=== PATIENT | female | born 1990 ===

== ENCOUNTER 2020-06-04 06:42 | Emergency (ER) | payer OTHER, SELFPAY ==
[2020-06-04 07:15] VITALS: BP 114/65; PULSE 107; RESP 18; TEMP 36.6; O2SAT 100; BMI 20.3
--- NOTE | 2020-06-04 07:29 | ED.GENADULT ---
HPI - General Adult General Chief complaint: Back Pain/Injury Stated complaint: back pain Time Seen by Provider: 06/04/20 07:15 Source: patient Mode of arrival: ambulatory Limitations: no limitations History of Present Illness HPI narrative: 30-year-old female who presents emergency department for evaluation of left-sided back pain with pain radiating down her left leg. She states the pain began yesterday evening at 11:30 p.m.. The pain came on gradually but got progressively worse. She points to her left lower back when asked to localize the pain. The pain is sharp, constant pain which is 10/10 at its worst. She did not take any pain medications at home for this pain. The pain does radiate down her leg to the back of her foot. She states that she does feel weakness in her left leg but has no numbness. She denied loss of bowel or bladder control. She does not recount any injury over the last 1-2 days. She was carrying some boxes yesterday but did not think that she hurt herself. She denied any generalized symptoms such as fever, chills, chest pain, shortness of breath, cough, nausea, vomiting, diarrhea, loss of sense of taste or smell. The patient states the pain is similar to sciatic pain that she had approximately 1 year ago when she was . Related Data Previous Rx's Medication Instructions Recorded cyclobenzaprine 10 mg PO BEDTIME PRN #10 tab 06/04/20 morphine 15 mg PO Q4-6H PRN #10 tab 06/04/20 Allergies Allergy/AdvReac Type Severity Reaction Status Date / Time acetaminophen [Percocet] Allergy Unknown rash Verified 12/23/18 00:00 oxycodone [Percocet] Allergy Unknown rash Verified 12/23/18 00:00 Review of Systems Review of Systems: Yes all other systems are reviewed and are negative [facility] Past Medical History [facility] Narrative: Past medical history sent for sciatica, past surgical history the patient had maxillofacial surgery for an overbite. She denies tobacco, alcohol and drug use. Medical History No known health problems Social History Social History Smoking Status: Never smoker Use of substances other than those prescribed or required for medical reasons: No Advance Directives: Yes Advance Directives Information Provided: No Advance Directives on File: No Physical Exam Vital Signs: Vital Signs: Last Vital Signs Temp 97.9 F 06/04/20 07:15 Pulse 75 06/04/20 09:56 Resp 18 06/04/20 07:15 BP 99/52 L 06/04/20 09:56 Pulse Ox 100 06/04/20 09:56 Body Mass Index 20.3 Const: General: cooperative, healthy appearing and in distress (Moderate secondary to back pain, having difficulty sitting on the stretcher) Orientation/consciousness: oriented to person and oriented to place Limitations: no limitations HENMT: Head: Yes normal to inspection, Yes normocephalic and Yes atraumatic Ears: external ears normal General nose exam: Normal external nose present Face and sinus: Yes normal facial exam Mouth: Normal oral and palatal mucosa present Throat: Yes posterior oropharynx normal Eyes: Periorbital: periorbital findings normal Eyelids: Yes eyelids normal Conjunctivae: conjunctivae normal Sclerae: sclerae normal Corneas: corneas normal Pupils: Equal, round and reactive pupils present Direct Ophthalmoscopy: normal light reflex Neck: Neck: Yes full ROM, Yes no lymphadenopathy, Yes no meningeal signs, Yes trachea midline and Yes supple Chest: Chest palpation & inspection: normal inspection of the chest and normal palpation of entire chest wall Resp: Effort & Inspection: normal respiratory effort and able to speak in complete sentences Auscultation: clear to auscultation bilaterally Cardio: Rate: regular rate Rhythm: regular rhythm Heart sounds: S1 normal heart sound present, S2 normal heart sound present and no murmurs GI: Inspection: Yes normal to inspection Palpation (GI): Soft to palpation, nontender, no guarding, not rigid and No hepatosplenomegaly present : General: Yes no CVA tenderness Back/Spine/Pelvis: Back: no CVA tenderness Cervical Spine: normal cervical lordosis Thoracic/Lumbar Spine: thoracic and lumbar spine normal to inspection, paraspinal muscle tenderness on the left in the mid lumbar and in the lower lumbar, lumbar spinal tenderness at L1, at L2, at L3, at L4 and at L5 and straight leg raise positive left Skin: Lesions: no lesions Rashes: no rashes Wounds: no wounds Neuro: General: oriented to person, oriented to place and no meningeal signs Cranial nerves: Yes CN's II-XII intact bilaterally and Yes Equal, round and reactive pupils present Cognition (Neuro): normal cognition Motor exam (neuro): 5/5 motor strength present throughout Extrem: General: Yes normal to inspection and Yes full ROM Psych: Appearance: well kempt Mental Status: mental status grossly normal Speech and movement: Normal speech and movement present Affect: normal affect Attitude: cooperative Thought process: Normal thought process present Thought content: Normal thought content present Course Course Course Narrative: 30-year-old female with history of sciatica who presents emergency department for evaluation of left lower back pain radiating down her left leg which began last night at 11:30 p.m., she had no injury and no systemic symptoms. Physical examination did reveal lumbar paraspinal muscle tenderness, lumbar vertebral tenderness and a positive left straight leg raise. Neurologic exam was nonfocal . The's examination is most consistent with sciatica. She was ordered to get Toradol 30 mg IV to see if this helps with the pain. 1009: The patient had some relief with the IV Toradol however she required a dose of morphine 4 mg IV. After the dose of morphine, she states that her pain is down to a tolerable level and she would like to try to go home. The patient's urinalysis and urine test were negative. The patient was advised to take ibuprofen and Tylenol for pain for pain not relieved by these medication she was given a prescription for morphine 15 mg, 1 pill every 4-6 hours as needed for pain. I did discuss addiction with the patient she states she has noted concerns. Patient was also started on Flexeril 10 mg at night. She was given verbal and printed instructions and discharged home. The patient was given a note not return to work for 2 days. [employer] search revealed no prescriptions for narcotic medications and a 1 year search interval. Medical Decision Making Lab Data Labs: Lab Results 06/04/20 06/04/20 Range/Units 08:20 08:20 Urine Color YELLOW Urine Appearance HAZY Urine pH 6.0 (5.0-8.0) Ur Specific [place] 1.025 (1.005-1.025) Urine Protein NEG (NEG-TRACE) MG/DL Urine Glucose (UA) NEG (NEG) MG/DL Urine Ketones NEG (NEG) MG/DL Urine Blood NEG (NEG) Urine Nitrite NEG (NEG) Ur Leukocyte Esterase NEG (NEG) Urine Test NEGATIVE (NEGATIVE) Discharge Plan Discharge Clinical Impression: Sciatica Patient Disposition: Home, Self-Care Instructions: Lumbar Radiculopathy (ED) Additional Instructions: Back Pain Discharge Instructions: Take Motrin(ibuprofen) 200 mg pills, 3 pills every 6 hours as needed for pain. Take Tylenol(acetaminophen) 500 mg pills, 2 pills every 6 hours as needed for pain. Take Flexerl(cyclobenzaprine) 10 mg pills, 1 pill every at night for pain or muscle spasm. This is a prescription medication. This medication will make you sleepy, therefore do not drive or work while taking this medication. Apply ice for 15 minutes to the area that hurts on your back, then apply a heating a pad on low for 15 minutes. Do this 4-6 times a day to help reduce the pain in your back. Continue with normal activities as tolerated since staying in bed and not moving around will make your pain worse. Please return to the Emergency Department or see your doctor immediately if your symptoms get worse or if you develop any new symptoms that are concerning you. Follow up with your doctor in 2 day. Please read the other printed discharge instructions on back pain with radiculopathy. Prescriptions: New cyclobenzaprine 10 mg tablet 10 mg PO BEDTIME PRN (Reason: muscle pain or spasm) Qty: 10 RF: 0 morphine 15 mg tablet 15 mg PO Q4-6H PRN (Reason: pain) Qty: 10 RF: 0 Stand Alone Forms: Work/School Release
[2020-06-04] MEDS: Ketorolac Tromethamine 30 MG/ML VIAL IVPUSH (07:33)
--- NOTE | 2020-06-04 08:17 | PC.NURSE ---
pt reports slight improvement in her pain 10/05, but also reports some tingling/pins and needle feeling which is new
[2020-06-04 08:34] LABS: Glucose Urine UA NEG (NEG); Leukocyte Esterase Urine NEG (NEG); Nitrite Urine NEG (NEG); Specific Gravity - Urine 1.025 (1.005-1.025); Urine Blood NEG (NEG); Urine Ketones NEG (NEG); Urine Protein NEG (NEG-TRACE)
[2020-06-04 08:36] LABS: Appearance Urine HAZY; Color Urine YELLOW
[2020-06-04] MEDS: Morphine Sulfate 4 MG/ML CARTRIDGE IVPUSH (09:06)
[2020-06-04 09:19] LABS: UPreg QC Valid YES; Urine Pregnancy NEGATIVE (NEGATIVE)
[2020-06-04 09:56] VITALS: BP 99/52; PULSE 75; O2SAT 100
--- NOTE | 2020-06-04 09:59 | PC.NURSE ---
pt reports feeling better pain at 4/10
== END 2020-06-04 10:42 | disposition home or self-care (01) ==
PROVIDERS: Emergency Provider Emergency Medicine Emergency Medical Services
DX: M54.42 Lumbago with sciatica, left side (principal); Z79.899 Other long term (current) drug therapy
CPT/HCPCS: 81003; 81025; 96374; 96375; 99284; J1885; J2270

== ENCOUNTER 2020-06-24 14:24 | Outpatient (REF) | payer OTHER, SELFPAY ==
[2020-06-25 08:40] LABS: BV Int Neg Control Negative (Negative); BV Int Pos Control Positive (Positive)
[2020-06-25 08:53] LABS: CT PCR NOT DETECTED (Not Detect.); NG PCR NOT DETECTED (Not Detect.)
[2020-06-26 08:36] LABS: Syphilis Screen Nonreactive (Nonreactive)
[2020-06-26 08:56] LABS: HBc Num1 0.09 S/CO (0.00-0.79); Hepatitis B Core Antibody Nonreactive (Nonreactive); ~HepC Num1 0.26 S/CO (0.00-0.79); ~Hepatitis C Antibody Nonreactive (Nonreactive)
[2020-06-26 09:21] LABS: HIV AB/AG Nonreactive (Nonreactive); HIV Num 1 0.06 S/CO (0.00-0.99)
[2020-06-27 09:01] LABS: HPV 16 RNA NOT DETECTED (NOT DETECTED); HPV mRNA E6/E7 rflx Detected (Not Detected)
== END 2020-06-24 14:25 | disposition home or self-care (01) ==
LOC: HO.LAB 14:24
PROVIDERS: Visit Provider Advanced Practice Midwife
DX: Z01.411 Encounter for gynecological examination (general) (routine) with abnormal findings (principal); Z11.51 Encounter for screening for human papillomavirus (HPV); N93.0 Postcoital and contact bleeding; Z20.2 Contact with and (suspected) exposure to infections with a predominantly sexual mode of transmission
CPT/HCPCS: 36415; 86704; 86780; 86803; 87389; 87480; 87491; 87510; 87591; 87624; 87625; 87660; 88141; 88142

== ENCOUNTER 2020-06-27 11:23 | Outpatient (REF) | payer OTHER, SELFPAY ==
--- NOTE | ~2020-06-27 | US_ITS ---
EXAMINATION: ULTRASOUND OF THE PELVIS CLINICAL INFORMATION: Pelvic and perineal pain. COMPARISON: 03/11/2018. TECHNIQUE: Transabdominal and transvaginal pelvic ultrasound. A transvaginal study was performed in addition to the transabdominal study which did not yield an adequate examination of the uterus and ovaries due to superimposed distended gas-filled loops of bowel. FINDINGS: The uterus is normal in size and appearance, measuring 6 x 2.9 x 4.2 cm longitudinally, anteroposteriorly and transversely. Retroverted uterus. The endometrial stripe thickness is normal, measuring 18.5 cm in thickness. No focal myometrial mass is seen. The ovaries bilaterally are visualized and appear normal, with the right ovary measuring 2.3 x 2.5 x 2.5 cm and the left ovary measuring 2.8 x 2.6 x 3 cm. Dominant follicle noted in the right ovary. No adnexal mass or free fluid collection seen. US/US pelvic complete IMPRESSION: Unremarkable pelvic ultrasound.
--- NOTE | ~2020-06-27 | US_ITS ---
EXAMINATION: ULTRASOUND OF THE PELVIS CLINICAL INFORMATION: Pelvic and perineal pain. COMPARISON: 03/11/2018. TECHNIQUE: Transabdominal and transvaginal pelvic ultrasound. A transvaginal study was performed in addition to the transabdominal study which did not yield an adequate examination of the uterus and ovaries due to superimposed distended gas-filled loops of bowel. FINDINGS: The uterus is normal in size and appearance, measuring 6 x 2.9 x 4.2 cm longitudinally, anteroposteriorly and transversely. Retroverted uterus. The endometrial stripe thickness is normal, measuring 18.5 cm in thickness. No focal myometrial mass is seen. The ovaries bilaterally are visualized and appear normal, with the right ovary measuring 2.3 x 2.5 x 2.5 cm and the left ovary measuring 2.8 x 2.6 x 3 cm. Dominant follicle noted in the right ovary. No adnexal mass or free fluid collection seen. US/US transvaginal IMPRESSION: Unremarkable pelvic ultrasound.
== END 2020-06-27 11:24 | disposition home or self-care (01) ==
LOC: HO.US 11:23
PROVIDERS: Visit Provider Advanced Practice Midwife
DX: R10.2 Pelvic and perineal pain (principal)
CPT/HCPCS: 76830; 76856

== ENCOUNTER → 2020-07-11 11:52 | Outpatient (BNVA) | payer OTHER, SELFPAY | PROVIDERS: Visit Provider Advanced Practice Midwife ==

== ENCOUNTER → 2020-08-07 11:14 | Outpatient (BNVA) | payer OTHER, SELFPAY | PROVIDERS: Visit Provider Advanced Practice Midwife ==